=== PATIENT | male | born 1980 | race Two or more races ===

== ENCOUNTER 2024-01-24 17:07 | Emergency (ER) | payer BC, SELFPAY ==
[2024-01-24 17:08] VITALS: BMI 43.4
[2024-01-24 17:18] VITALS: BP 117/69; PULSE 88; RESP 19; TEMP 36.9; O2SAT 98
--- NOTE | 2024-01-24 17:26 | PD.EDRME ---
Rapid Medical Screening Exam RME Arrival date/time: 01/24/24 17:07 43-year-old male presents the emergency department complaints of right lower quadrant abdominal pain x 2 days. I have greeted and performed a focused initial assessment of this patient. Initial appropriate labs ordered at this time. A comprehensive ED assessment and evaluation of the patient and analysis of all test and completion of medical decision making process will be conducted by additional ED provider. Chief Complaint: Abdominal Pain Time Seen by Provider: 01/24/24 17:22 Vital signs: Vital Signs Temperature 98.5 F 01/24/24 17:18 Pulse Rate 88 01/24/24 17:18 Respiratory Rate 19 01/24/24 17:18 Blood Pressure 117/69 01/24/24 17:18 Pulse Oximetry (%) 98 01/24/24 17:18 Oxygen Delivery Method Room Air 01/24/24 17:18
--- NOTE | 2024-01-24 17:36 | XR_ITS ---
Examination: CT abdomen and pelvis without contrast. Coronal 3-D reconstructions. Sagittal 2-D reconstructions. Date and time of exam:January 24, 2024 1808 hrs. Indications: Left-sided flank pain with dysuria today CTDI: vol (mGy): 13.7 DLP: (mGycm): 845 Technique: Axial images of the abdomen have been obtained, 3 mm slice thickness Intravenous contrast material has not been administered. Low dose protocols were performed. One or more of the following dose reduction techniques were used; automated exposure control, adjustment of the mA and/or KV according to patient size, use of iterative reconstruction technique. Findings: 13 mm anterior liver cyst No biliary tract dilatation No gallstones Spleen not enlarged No pancreatic or adrenal mass Mild left hydronephrosis secondary to 3 mm distal left ureterovesical junction calculus No bowel obstruction Normal appendix Aorta normal size Contracted urinary bladder No prostatomegaly Impression: Mild left hydronephrosis secondary to 3 mm distal left ureterovesical junction calculus
--- NOTE | 2024-01-24 17:37 | PD.EDRME ---
Rapid Medical Screening Exam RME Arrival date/time: 01/24/24 17:07 01/24/24 17:07 43-year-old male presents the emergency department complaints of left flank t lower quadrant abdominal pain x 2 days associated with dysuria.. I have greeted and performed a focused initial assessment of this patient. Initial appropriate labs ordered at this time. A comprehensive ED assessment and evaluation of the patient and analysis of all test and completion of medical decision making process will be conducted by additional ED provider. Chief Complaint: Abdominal Pain Time Seen by Provider: 01/24/24 17:22 Vital signs: Vital Signs Temperature 98.5 F 01/24/24 17:18 Pulse Rate 88 01/24/24 17:18 Respiratory Rate 19 01/24/24 17:18 Blood Pressure 117/69 01/24/24 17:18 Pulse Oximetry (%) 98 01/24/24 17:18 Oxygen Delivery Method Room Air 01/24/24 17:18 RME Narrative: 01/24/24 17:07 43-year-old male presents the emergency department complaints of right lower quadrant abdominal pain x 2 days. I have greeted and performed a focused initial assessment of this patient. Initial appropriate labs ordered at this time. A comprehensive ED assessment and evaluation of the patient and analysis of all test and completion of medical decision making process will be conducted by additional ED provider.
[2024-01-24 17:58] LABS: Basophils # (Auto) 0.1 Thou/mm3 (0.0-0.2); Basophils % (Auto) 1 % (0-2.5); Eosinophils # (Auto) 0.1 Thou/mm3 (0.0-0.5); Eosinophils % (Auto) 0 % (0-10); Hematocrit 44.8 % (41.0-53.0); Hemoglobin 15.4 g/dL (13.5-16.0); Immature Granulocytes % (Auto) 0 % (0-0); Immature Granulocytes Auto 0.03 Thou/mm3 (0.00-0.00); Lymphocytes # (Auto) 1.4 Thou/mm3 (1.0-4.8); Lymphocytes % (Auto) 11 % (10-50); Mean Corpuscular HGB Conc 34.4 g/dl (31.0-37.0); Mean Corpuscular Hemoglobin 30.5 pg (25.0-35.0); Mean Corpuscular Volume 89 fL (80-100); Monocytes # (Auto) 0.4 Thou/mm3 (0.0-0.8); Monocytes % (Auto) 3 % (0-12); Neutrophils # (Auto) 10.9 Thou/mm3 (1.8-7.7); Neutrophils % (Auto) 85 % (37-80); Nucleated Red Blood Cell % 0 /100 WBC (0); Platelet Count 201 Thou/mm3 (140-440); RDW Standard Deviation 39.7 fL (35.1-43.9); Red Blood Count 5.05 Miln/mm3 (4.50-5.90); White Blood Count 12.8 Thou/mm3 (3.8-10.6)
[2024-01-24] MEDS: ONDANSETRON ODT 4 MG TABRAP PO (18:15)
[2024-01-24] MEDS: KETOROLAC INJ 60 MG/2 ML VIAL IM (18:15)
[2024-01-24 18:17] LABS: Alanine Aminotransferase 33 U/L (10-49); Albumin, Serum 4.6 gm/dL (3.5-5.0); Albumin/Globulin Ratio 1.4 (1.2-2.2); Alkaline Phosphatase 110 U/L (46-116); Anion Gap 7 (7-16); Aspartate Amino Transferase 21 U/L (0-34); BUN/Creatinine Ratio 7 Ratio (12-20); Bilirubin,Total 0.5 mg/dL (0.3-1.2); Blood Urea Nitrogen 12 mg/dL (9-23); Calcium 9.7 mg/dL (8.3-10.6); Calcium (Corrected) 9.7 mg/dL (8.5-10.1); Carbon Dioxide 26.2 mMol/L (20.0-31.0); Chloride 102 mMol/L (98-107); Creatinine (Component) 1.8 mg/dL (0.6-1.3); Globulin 3.2 gm/dL (2.3-3.5); Glucose 161 mg/dL (74-106); Lipase 29 U/L (12-53); Osmolality,Calculated 272 (275-295); Sodium 135 mMol/L (136-145); Total Protein 7.8 gm/dL (5.7-8.2); eGFR 48 See Note
[2024-01-24 18:36] LABS: Collection Type, Urine Clean Catch; Squamous Epithelial Cell,Urine 0 /hpf (0-5); WBC,Urine 0 /hpf (0-5)
[2024-01-24 19:10] LABS: Bilirubin,Urine Negative (Negative); Blood,Urine 3+ (Negative); Clarity,Urine Turbid (Clear/Hazy); Color,Urine Yellow (Lt Yel-Yel); Glucose, Urine Negative (Negative); Ketones,Urine 3+ (Negative); Leukocyte Esterase,Urine Negative (Negative); Nitrite,Urine Negative (Negative); PH,Urine 7.5 (5.0-7.0); Protein,Urine 1+ (Neg - Trace); RBC,Urine 997 /hpf (0-3); Specific Gravity,Urine 1.035 (1.001-1.035)
--- NOTE | 2024-01-24 19:39 | EDNOTE_ITS ---
ED Abdominal Pain RME/HPI General Chief Complaint: Abdominal Pain Stated complaint: RLQ PAIN X2 DAYS Time seen by provider: 01/24/24 17:22 Arrival date/time: 01/24/24 17:07 RME / HPI RME / HPI narrative: 01/24/24 17:07 A 43-year-old male patient with no past medical history presented due to left- sided abdominal pain started this afternoon. The pain is severe 10 out of 10 in severity, with no radiation, associated with change in color of urine to reddish in color. Patient denied any fever however he had nausea and chills. Patient denied any similar episodes in the past denied any diarrhea or constipation and denied any anorexia. Related Data Previous Rx's ?Medication ?Instructions ?Recorded hydrocodone 10 mg-acetaminophen 1 tab PO Q8H PRN pain 5 days #15 01/24/24 300 mg tablet tabs ondansetron 4 mg disintegrating 4 mg PO Q8H PRN nausea and 01/24/24 tablet vomiting 5 days #15 tabs tamsulosin 0.4 mg capsule (Flomax) 0.4 mg PO QDAY 6 days #6 caps 01/24/24 Allergies Allergy/AdvReac Type Severity Reaction Status Date / Time No Known Allergies Allergy Verified 01/24/24 17:10 ED Exam Narrative Physical exam: GEN: AOx3, able to speak full sentences HEENT: NC/AC, oral mucosa moist, neck supple CVS: RRR, S1-S2 present, no murmurs appreciated RESP: CTAB GI: soft,non distended, negative CVA tenderness, non tender, NBS MSK: able to move all 4 limbs, no lower extremity edema SKIN: warm and dry CRUISE COORDINATOR: CN II-XII and Sensation grossly intact. Course Quality Measures none Orders Category Date Time Status CT abdomen pelvis wo con Stat Exams 01/24/24 17:36 Completed CBC Stat Lab 01/24/24 17:36 Completed Comprehensive Metabolic Panel Stat Lab 01/24/24 17:36 Completed Lipase Stat Lab 01/24/24 17:36 Completed Urinalysis Stat Lab 01/24/24 18:09 Completed Ketorolac Inj [Toradol Inj] Med 01/24/24 17:36 Discontinued 60 mg IM X1 ONE Ondansetron Odt [Zofran Odt] Med 01/24/24 17:36 Discontinued 4 mg PO X1 ONE Vital Signs Vital signs: Vital Signs Temperature 98.5 F 01/24/24 17:18 Pulse Rate 88 01/24/24 17:18 Respiratory Rate 19 01/24/24 17:18 Blood Pressure 117/69 01/24/24 17:18 Pulse Oximetry (%) 98 01/24/24 17:18 Oxygen Delivery Method Room Air 01/24/24 17:18 Abdominal Pain MDM MDM Narrative MDM Narrative:: On evaluation patient was found to have kidney stones on the left side on the ureterovesical junction measured 3 mm with mild hydronephrosis no signs of stranding or pyelonephritis. Serum creatinine was 1.8. For that reason we will instruct the patient to follow-up closely with his primary care physician. We instructed the patient to return to the ED if he has any fever or chills or worsening of his pain. Patient data External records reviewed:: [facility] previous records Clinical information provided by:: patient and spouse Social determinants that could affect healthcare access:: none Patient has the following chronic illnesses:: None How is presenting disease/condition affected by chronic disease/condition?: no chronic disease Evaluation data The following diagnostics were reviewed and interpreted by me:: lab results and radiology exam(s) Lab and/or radiology exams considered but not ordered:: None Interpretation Summary: Renal calculus Medications / Prescriptions Medications or Prescriptions considered but not ordered:: None Medication administrations:: Medication Administration History Discontinued Medications Ketorolac Tromethamine (Ketorolac Inj 60 Mg/2 Ml Vial) 60 mg IM X1 ONE Stop: 01/24/24 17:37 Last Admin: 01/24/24 18:15 Dose: 60 mg Documented By: Ondansetron HCl (Ondansetron Odt 4 Mg Tabrap) 4 mg PO X1 ONE; Protocol Stop: 01/24/24 17:37 Last Admin: 01/24/24 18:15 Dose: 4 mg Documented By: As above if given Consultations Consultation(s) initiated? (list below): No Diagnosis Differential diagnosis abdominal pain: abdominal pain, calculus of kidney, gastroenteritis and pancreatitis Most likely diagnosis given after review of the tests above:: Ureterovesical stones with mild hydronephrosis Admission Indicated Admission indicated?: not indicated Admission Request Was there a request for admission?: No Disposition Plan Disposition Plan: Discharge Discharge Attestation Discharge Attestation: The patient and all family members were given an opportunity to ask questions and understood the discharge instructions. Discharge instructions specifically effects, indications for sooner follow up or return to the emergency department, and the expected course of current diagnosis. Patient condition: Stable Discharge Plan Plan Patient Disposition: HOME (Self Care) Prescriptions/Referrals Prescriptions/Med Rec: New hydrocodone-acetaminophen 10-300 mg tablet 1 tab PO Q8H MDD 30 mg per day PRN (Reason: pain) 5 Days Qty: 15 0RF ondansetron 4 mg tablet,disintegrating 4 mg PO Q8H PRN (Reason: nausea and vomiting) 5 Days Qty: 15 0RF tamsulosin [Flomax] 0.4 mg capsule 0.4 mg PO QDAY 6 Days Qty: 6 0RF Referrals: No Primary/Family,Physician [Primary Care Provider] - In 1 week Problem List Clinical Impression: Calculus of kidney Patient/Caregiver Discharge Instructions Additional Instructions: Discharge Instructions from Dr. James and printed: --After evaluation, your symptoms are due to a 3 mm kidney stone.? It's in the ureter tube.?? --Increase oral fluid to flush your kidneys.? Maintain clear urine. if it's dark or yellow then increase oral fluid.? If you don't do this, you won't pass it.? --Take Flomax to help decrease spasms to increase the chance of passing it.? --Take Zofran as needed for nausea or vomiting. --Take [place] for pain control. If you are in severe pain, you won't pass it. - Avoid Driving or operating on heavy machinery if you take the pain medications. --Strain your urine so you can catch the stone when you pass it.? --See Your primary care provider within one 3 days from discharge for follow up on your kidney functions and possible referral to a urologist if needed? Take the stone with you for analysis because certain stones can be prevented.? This is very important.? He will need to take the stone out for you if needed.?? --Seek immediate medical care with fever over 100.4, persistent vomiting despite Zofran, intolerable pain, or with any concerns.?? Print Language: Salvad[place] Stand Alone Forms: [facility]i Award Info., Patient Portal Info Letter
== END 2024-01-24 20:38 | disposition home or self-care (01) ==
PROVIDERS: Nurse Practitioner Primary Care; Emergency Provider Emergency Medicine
DX: N13.2 Hydronephrosis with renal and ureteral calculous obstruction (principal)
CPT/HCPCS: 36415; 74176; 80053; 81001; 83690; 85025; 96372; 99284; J1885; Q0162